=== PATIENT | male | born 1945 | race Caucasian/White ===

== ENCOUNTER 2019-02-20 08:58 | Day surgery (SDC) | payer MEDICARE ==
[2019-02-20] VITALS (20 sets, daily range): BP systolic 107–180; BP diastolic 52–88; PULSE 53–104; RESP 14–30; Ht 167.6 cm; Wt 81.4 kg
[~2019-02-20] VITALS: Ht 167.6 cm; Wt 81.4 kg
[~2019-02-20 08:58] MED LIST: ASPI-817 PO; CHOL100062 PO; CLON-379 PO; FOLI0.4T2 PO; HYDR-3024 PO; LISI40TA3 PO; PRAV40TA76 PO; THIA250T7 PO; VERA180T PO
[2019-02-20] MEDS ORDERED: BUPIVACAINE 0.5%/EPI (SDV) 30 ML INJ ONE (09:40)
[2019-02-20] MEDS ORDERED: THROMBIN 5000 UNIT (RECOTHROM) VIAL ONE ×2 (09:40→11:31)
[2019-02-20] MEDS ORDERED: POLYMYXIN/BACITRACIN 1L IRRIG ONE (09:40)
[2019-02-20] MEDS ORDERED: GELATIN SIZE 100 SPONGE ONE ×2 (09:40→11:29)
[2019-02-20] MEDS ORDERED: DIPHENHYDRAMINE 50 MG INJ IV PRN ×2 (10:00→14:00)
[2019-02-20] MEDS ORDERED: BISACODYL 10 MG SUPP PR PRN (10:00)
[2019-02-20] MEDS ORDERED: CYCLOBENZAPRINE 10 MG TAB PO PRN (10:00)
[2019-02-20] MEDS ORDERED: LACTATED RINGER'S 1,000 ML IV SCH (10:00)
[2019-02-20] MEDS ORDERED: CEPASTAT LOZENGE MT PRN (10:00)
[2019-02-20] MEDS ORDERED: HYDROCODONE/APAP (10/325) TAB PO PRN ×2 (10:00)
[2019-02-20] MEDS ORDERED: DIPHENHYDRAMINE 25 MG CAP PO PRN (10:00)
[2019-02-20] MEDS ORDERED: MAGNESIUM HYDROXIDE 30ML CUP PO PRN (10:00)
[2019-02-20] MEDS ORDERED: HYDROmorphONE 0.5 MG/0.5 ML SYG IV PRN (10:00)
[2019-02-20] MEDS ORDERED: ONDANSETRON 4 MG INJ IV PRN ×2 (10:00→14:00)
[2019-02-20] MEDS ORDERED: NALOXONE (0.4 MG/ML) INJ IV PRN (10:00)
[2019-02-20] MEDS ORDERED: ACETAMINOPHEN 325 MG TAB PO PRN (10:00)
[2019-02-20] MEDS ORDERED: HEMOSTATIC MATRIX SYG ZFS ONE ×2 (10:27→11:20)
[2019-02-20] MEDS ORDERED: ONDANSETRON 4 MG INJ ONE (10:30)
[2019-02-20] MEDS ORDERED: SEVOFLURANE 15 MIN ONE (10:30)
[2019-02-20] MEDS: CEFAZOLIN 1 GM/50 ML (PMX) 50 ML IVPB SCH ×2 (10:34→17:02)
[2019-02-20] MEDS ORDERED: MIDAZOLAM 1 MG/ML 2 ML INJ ONE (10:36)
[2019-02-20] MEDS ORDERED: HEPARIN 1000 UNITS/ML 10 ML INJ ONE (10:52)
[2019-02-20] MEDS ORDERED: CA CHLORIDE 10% 10 ML SYRINGE ONE (10:52)
[2019-02-20] MEDS ORDERED: morphine 10 MG INJ ONE ×2 (11:14→12:02)
[2019-02-20] MEDS ORDERED: ETOMIDATE 20 MG INJ ONE (13:07)
[2019-02-20] MEDS ORDERED: LIDOCAINE 2% (SDV) 5 ML INJ ONE (13:07)
[2019-02-20] MEDS ORDERED: ROCURONIUM 50 MG INJ ONE ×2 (13:07)
[2019-02-20] MEDS ORDERED: CEFAZOLIN 1 GM INJ ONE (13:12)
[2019-02-20] MEDS ORDERED: GLYCOPYRROLATE 0.4 MG INJ ONE (13:12)
[2019-02-20] MEDS ORDERED: NEOSTIGMINE 3 MG/3 ML SYRINGE ONE (13:12)
[2019-02-20] MEDS ORDERED: FENTAnyl 50 MCG/ML VIAL IV PRN (14:00)
[2019-02-20] MEDS ORDERED: LABETALOL HCL 20MG INJ IV PRN (14:00)
[2019-02-20] MEDS ORDERED: MEPERIDINE 25 MG INJ IV PRN (14:00)
[2019-02-20] MEDS ORDERED: hydrALAzine 20 MG INJ IV PRN (14:00)
[2019-02-20] MEDS ORDERED: HYDROmorphONE 1 MG/5 ML IV SYRINGE IV PRN ×2 (14:00)
[2019-02-20] MEDS ORDERED: METOCLOPRAMIDE 10 MG INJ IV PRN (14:00)
[2019-02-20] MEDS: D5W-0.45 NACL + KCL 20 MEQ 1,000 ML IV SCH ×2 (15:20→16:57)
[2019-02-20] MEDS ORDERED: LISINOPRIL 20 MG TAB PO SCH (15:30)
[2019-02-20] MEDS ORDERED: VERAPAMIL (SR) 180 MG TAB PO SCH (21:00)
[2019-02-20] MEDS ORDERED: DOCUSATE SODIUM 100 MG CAP PO SCH (21:00)
[2019-02-21] MEDS ORDERED: CHOLECALCIFEROL 1,000 UNIT TAB PO SCH (09:00)
[2019-02-21] MEDS ORDERED: FOLIC ACID 0.4 MG TAB PO SCH (09:00)
== END 2019-02-20 18:50 | disposition home or self-care (01) ==
LOC: SDS 08:58 → UNDOADMIN 09:56 → SDS 09:56 → REC 09:56 → MS1 14:22 → REC 14:22 → MS1 14:40 → SDS 18:50
PROVIDERS: ATTEND Specialist
DX: M51.26 Other intervertebral disc displacement, lumbar region (principal); M48.061 Spinal stenosis, lumbar region without neurogenic claudication; I10 Essential (primary) hypertension; I25.10 Atherosclerotic heart disease of native coronary artery without angina pectoris
CPT/HCPCS: 72020; 86999; 88304; 97161; J0690; J1644; J2250; J2270; J2405; J2710; J3010; J3480